=== PATIENT | female | born 1955 | race Caucasian/White ===

== ENCOUNTER → 2017-02-22 | Outpatient (CLI) | payer OTHER ==
[~2017-02-22] MED LIST: LISI-646 OR; ZOLP-158 OR
[2017-02-22 08:16] LABS: Basophils # (auto) 0.1 uL; Basophils % (auto) 0.9 % (0.0-2.0); Eosinophils # (auto) 0.3 uL; Eosinophils % (auto) 4.7 % (0.0-7.0); Hematocrit 44.2 % (36.0-46.0); Lymphocytes # (auto) 1.9 uL; Lymphocytes % (auto) 33.5 % (10.0-50.0); Mean Corpuscular Hemoglobin 34.2 pg (28.0-32.0); Mean Corpuscular Volume 100.6 fL (80.0-100.0); Mean Platelet Volume 8.9 fL (7.4-10.4); Monocytes # (auto) 0.6 uL; Neutrophils # (auto) 2.8 uL; Neutrophils % (auto) 49.9 % (37.0-80.0); Platelet Count (auto) 330 10^3/uL (140-450); Red Cell Distribution Width 13.2 % (11.6-16.0); White Blood Cell 5.6 10^3/uL (4.4-10.8)
[2017-02-22 08:44] LABS: Albumin 4.3 g/dL (3.4-5.0); BUN/Creatinine Ratio 17.4; Bilirubin, Total 0.6 mg/dL (0.2-1.0); Calcium 9.3 mg/dL (8.5-10.1); Potassium 4.7 mmol/L (3.5-5.1); Total Protein 7.9 g/dL (6.4-8.2)
== END | disposition home or self-care (01) ==
LOC: LAB 06:36
PROVIDERS: ATTEND Internal Medicine
DX: I10 Essential (primary) hypertension (principal); G47.00 Insomnia, unspecified
CPT/HCPCS: 36415; 80053; 80061; 82043; 82306; 84439; 84443; 85025; 85652

== ENCOUNTER → 2017-11-27 | Outpatient (CLI) | payer OTHER | END | disposition home or self-care (01) | LOC: LAB 13:56 | PROVIDERS: ATTEND Obstetrics & Gynecology | DX: N85.00 Endometrial hyperplasia, unspecified (principal) ==

== ENCOUNTER → 2017-12-03 | Outpatient (CLI) | payer OTHER ==
[2017-12-03 06:56] LABS: Urine Bacteria FEW /hpf (None Seen); Urine Blood Negative /uL (Negative); Urine Mucus FEW (None Seen); Urine Specific Gravity 1.025 (1.001-1.035); Urine WBC 1 /hpf (0 - 5)
[2017-12-03 07:14] LABS: Albumin 4.4 g/dL (3.4-5.0); Calcium 9.5 mg/dL (8.5-10.1); Potassium 4.6 mmol/L (3.5-5.1)
[2017-12-03 07:19] LABS: BUN/Creatinine Ratio 16.1; Basophils # (auto) 0.1 uL; Eosinophils # (auto) 0.2 uL; Eosinophils % (auto) 2.6 % (0.0-7.0); Monocytes # (auto) 0.6 uL; Neutrophils # (auto) 4.5 uL; Red Blood Cells 4.36 10^6/uL (4.0-5.20)
[2017-12-03 07:20] LABS: Bilirubin, Total 0.6 mg/dL (0.2-1.0); Total Protein 7.8 g/dL (6.4-8.2)
[2017-12-03 07:21] LABS: Basophils % (auto) 0.8 % (0.0-2.0); Hematocrit 44.7 % (36.0-46.0); Hemoglobin 15.1 g/dL (12.2-16.2); Lymphocytes # (auto) 1.9 uL; Lymphocytes % (auto) 25.6 % (10.0-50.0); Mean Corpuscular Hemoglobin 34.5 pg (28.0-32.0); Mean Corpuscular Hgb Conc. 33.7 g/dL (32.0-36.0); Mean Corpuscular Volume 102.6 fL (80.0-100.0); Monocytes % (auto) 8.6 % (0.0-12.0); Neutrophils % (auto) 62.4 % (37.0-80.0); Platelet Count (auto) 237 10^3/uL (140-450); Red Cell Distribution Width 12.6 % (11.8-14.3); White Blood Cell 7.2 10^3/uL (4.4-10.8)
== END | disposition home or self-care (01) ==
LOC: LAB 06:41
PROVIDERS: ATTEND Internal Medicine
DX: I10 Essential (primary) hypertension (principal); E78.00 Pure hypercholesterolemia, unspecified
CPT/HCPCS: 36415; 80053; 80061; 81001; 82043; 85025; 85652

== ENCOUNTER → 2018-05-13 | Outpatient (CLI) | payer OTHER ==
[2018-05-13 09:09] LABS: Albumin 4.1 g/dL (3.4-5.0); BUN/Creatinine Ratio 10.2; Bilirubin, Total 0.9 mg/dL (0.2-1.0); Calcium 9.3 mg/dL (8.5-10.1); Potassium 4.7 mmol/L (3.5-5.1); Total Protein 7.7 g/dL (6.4-8.2)
== END | disposition home or self-care (01) ==
LOC: LAB 07:03
PROVIDERS: ATTEND Internal Medicine
DX: E78.00 Pure hypercholesterolemia, unspecified (principal); N18.4 Chronic kidney disease, stage 4 (severe)
CPT/HCPCS: 36415; 80053; 80061

== ENCOUNTER → 2021-01-25 | Day surgery (SDC) | payer OTHER ==
[2021-01-20 09:54] LABS: Basophils # (auto) 0 10 ^3/uL (0-0.2); Basophils % (auto) 0.7 % (0.0-2.0); Eosinophils # (auto) 0.1 10 ^3/uL (0-0.8); Hemoglobin 15.7 g/dL (12.2-16.2); Lymphocytes # (auto) 1.8 10 ^3/uL (0.4-5.4); Mean Corpuscular Hemoglobin 34.1 pg (28.0-32.0); Mean Corpuscular Hgb Conc. 34.6 g/dL (32.0-36.0); Monocytes # (auto) 0.8 10 ^3/uL (0-1.3); Monocytes % (auto) 13.1 % (0.0-12.0); Red Blood Cells 4.61 10^6/uL (4.0-5.20)
[2021-01-20 09:58] LABS: Eosinophils % (auto) 1.4 % (0.0-7.0); Hematocrit 45.4 % (36.0-46.0); Mean Corpuscular Volume 98.6 fL (80.0-100.0); Neutrophils # (auto) 3.5 10 ^3/uL (1.6-8.6); Neutrophils % (auto) 55.8 % (37.0-80.0); Nucleated Red Blood Cells % 0.8 %; Platelet Count (auto) 332 10^3/uL (140-450); Red Cell Distribution Width 12.6 % (11.8-14.3); White Blood Cell 6.2 10^3/uL (4.4-10.8)
[2021-01-20 10:34] LABS: INR 1.02 (0.9-1.15); Partial Thromboplastin Time 27.8 sec (23.0-31.2)
[2021-01-20 10:38] LABS: Urine Bacteria NONE SEEN /hpf (None Seen); Urine Blood Negative /uL (Negative); Urine Hyaline Cast FEW /lpf (0 - 2); Urine Mucus FEW (None Seen); Urine Specific Gravity 1.026 (1.001-1.035); Urine WBC 1 /hpf (0 - 5)
[2021-01-20 10:47] LABS: Potassium 4.5 mmol/L (3.5-5.1)
[2021-01-20 11:00] LABS: Albumin 4.2 g/dL (3.4-5.0); BUN/Creatinine Ratio 10.7; Bilirubin, Total 0.6 mg/dL (0.2-1.0); Calcium 10.8 mg/dL (8.5-10.1); Total Protein 8.2 g/dL (6.4-8.2)
[~2021-01-25] VITALS: Ht 162.6 cm; Wt 74.8 kg
[~2021-01-25] MED LIST changes: +AMLO-489 PO; +BIMA0.01 EACHEYE; +HYDROmorphone HCL 2 MG/ML VL IV PRN; +HYDROmorphone HCL 2 MG/ML VL ONE; +LABETALOL HCL 5 MG/ML 4ML SYRINGE IV PRN; +LIDOCAINE 1% HCL (LOCAL ANESTH.) INJ 20ML MDV ONE; +LIDOCAINE W/ EPINEPHRINE 1% 20ML VIAL ONE; -LISI-646 OR; +LISI20TA28 OR; +METO25TA93 PO; +METOCLOPRAMIDE HCL 5MG/ml INJ 2ml VIAL ONE; +MIDAZOLAM HCL 1MG/1ML-2 ML VIAL ONE; +ONDANSETRON HCL 4 MG/2 ML VIAL IV PRN; +ONDANSETRON HCL 4 MG/2 ML VIAL ONE; -ZOLP-158 OR; +ZOLP5TAB OR; +ceFAZolin 1GM/50ML 50 ML IV ONE; +ePHEDrine SULFATE 50 MG/ML AMP ONE; +fentaNYL CITRATE 100 MCG/2 ML VL ONE; +hydrALAZINE HCL 20 MG/ML VL IV PRN
[2021-01-25 15:25] VITALS: BP 136/95
== END | disposition home or self-care (01) ==
LOC: SUR 07:27
PROVIDERS: ATTEND Surgery
DX: C50.411 Malignant neoplasm of upper-outer quadrant of right female breast (principal); K21.9 Gastro-esophageal reflux disease without esophagitis; H40.9 Unspecified glaucoma; J45.909 Unspecified asthma, uncomplicated; I10 Essential (primary) hypertension; Z98.890 Other specified postprocedural states; Z20.822 Contact with and (suspected) exposure to COVID-19; Z90.89 Acquired absence of other organs; Z91.041 Radiographic dye allergy status; Z17.0 Estrogen receptor positive status [ER+]
CPT/HCPCS: 19285; 19301; 36415; 38525; 78195; 80053; 81001; 85025; 85610; 85730; A9541; J0690; J1170; J2001; J2250; J2405; J2765; J3010; U0003

== ENCOUNTER → 2021-04-21 | Outpatient (CLI) | payer OTHER ==
[~2021-04-21] MED LIST changes: +AMLO-496 PO; -HYDROmorphone HCL 2 MG/ML VL IV PRN; -HYDROmorphone HCL 2 MG/ML VL ONE; -LABETALOL HCL 5 MG/ML 4ML SYRINGE IV PRN; -LIDOCAINE 1% HCL (LOCAL ANESTH.) INJ 20ML MDV ONE; -LIDOCAINE W/ EPINEPHRINE 1% 20ML VIAL ONE; -METOCLOPRAMIDE HCL 5MG/ml INJ 2ml VIAL ONE; -MIDAZOLAM HCL 1MG/1ML-2 ML VIAL ONE; +OMEG306C PO; -ONDANSETRON HCL 4 MG/2 ML VIAL IV PRN; -ONDANSETRON HCL 4 MG/2 ML VIAL ONE; -ceFAZolin 1GM/50ML 50 ML IV ONE; -ePHEDrine SULFATE 50 MG/ML AMP ONE; -fentaNYL CITRATE 100 MCG/2 ML VL ONE; -hydrALAZINE HCL 20 MG/ML VL IV PRN
[2021-04-21 09:37] LABS: Basophils # (auto) 0.1 10 ^3/uL (0-0.2); Eosinophils # (auto) 0.1 10 ^3/uL (0-0.8); Eosinophils % (auto) 1.6 % (0.0-7.0); Hematocrit 49.2 % (36.0-46.0); Hemoglobin 16.9 g/dL (12.2-16.2); Lymphocytes # (auto) 1.3 10 ^3/uL (0.4-5.4); Lymphocytes % (auto) 28.1 % (10.0-50.0); Mean Corpuscular Hemoglobin 33.7 pg (28.0-32.0); Mean Corpuscular Hgb Conc. 34.2 g/dL (32.0-36.0); Mean Corpuscular Volume 98.4 fL (80.0-100.0); Monocytes # (auto) 0.5 10 ^3/uL (0-1.3); Monocytes % (auto) 10.6 % (0.0-12.0); Neutrophils # (auto) 2.6 10 ^3/uL (1.6-8.6); Neutrophils % (auto) 56.7 % (37.0-80.0); Red Cell Distribution Width 12.8 % (11.8-14.3); White Blood Cell 4.6 10^3/uL (4.4-10.8)
[2021-04-21 10:14] LABS: Albumin 4.6 g/dL (3.4-5.0); Calcium 10.3 mg/dL (8.5-10.1); Potassium 4.5 mmol/L (3.5-5.1)
[2021-04-21 10:20] LABS: Bilirubin, Total 0.6 mg/dL (0.2-1.0); Total Protein 8.7 g/dL (6.4-8.2)
== END | disposition home or self-care (01) ==
LOC: LAB 09:06
PROVIDERS: ATTEND Internal Medicine
DX: Z01.812 Encounter for preprocedural laboratory examination (principal); E83.52 Hypercalcemia
CPT/HCPCS: 36415; 80053; 82088; 82384; 83615; 83970; 85025

== ENCOUNTER 2021-04-26 06:33 | Day surgery (SDC) | payer OTHER ==
[2021-04-21 09:36] LABS: Basophils # (auto) 0.1 10 ^3/uL (0-0.2); Basophils % (auto) 2.1 % (0.0-2.0); Eosinophils # (auto) 0.1 10 ^3/uL (0-0.8); Eosinophils % (auto) 1.9 % (0.0-7.0); Hematocrit 48.9 % (36.0-46.0); Hemoglobin 16.6 g/dL (12.2-16.2); Lymphocytes # (auto) 1.3 10 ^3/uL (0.4-5.4); Lymphocytes % (auto) 28.2 % (10.0-50.0); Mean Corpuscular Hemoglobin 33.5 pg (28.0-32.0); Mean Corpuscular Hgb Conc. 34.1 g/dL (32.0-36.0); Mean Corpuscular Volume 98.2 fL (80.0-100.0); Monocytes # (auto) 0.6 10 ^3/uL (0-1.3); Monocytes % (auto) 12.3 % (0.0-12.0); Neutrophils # (auto) 2.5 10 ^3/uL (1.6-8.6); Neutrophils % (auto) 55.5 % (37.0-80.0); Nucleated Red Blood Cells % 0.1 %; Red Blood Cells 4.97 10^6/uL (4.0-5.20); Red Cell Distribution Width 12.9 % (11.8-14.3); White Blood Cell 4.5 10^3/uL (4.4-10.8)
[2021-04-21 09:40] LABS: Urine Bacteria NONE SEEN /hpf (None Seen); Urine Blood Negative /uL (Negative); Urine Hyaline Cast FEW /lpf (0 - 2); Urine Mucus FEW (None Seen); Urine Specific Gravity 1.034 (1.001-1.035); Urine WBC 1 /hpf (0 - 5)
[2021-04-21 10:13] LABS: Albumin 4.6 g/dL (3.4-5.0); Calcium 10.5 mg/dL (8.5-10.1); Potassium 4.5 mmol/L (3.5-5.1)
[2021-04-21 10:16] LABS: BUN/Creatinine Ratio 16.5
[2021-04-21 10:20] LABS: Bilirubin, Total 0.6 mg/dL (0.2-1.0); Total Protein 8.7 g/dL (6.4-8.2)
[~2021-04-26] VITALS: Ht 162.6 cm; Wt 74.8 kg
[~2021-04-26 06:33] MED LIST changes: -AMLO-489 PO
[2021-04-26] MEDS ORDERED: BUPIVACAINE 0.25% INJ 50ML VIAL ONE (07:02)
[2021-04-26] MEDS ORDERED: LIDOCAINE W/ EPINEPHRINE 1% 20ML VIAL ONE (07:02)
[2021-04-26] MEDS ORDERED: ceFAZolin 1GM/50ML 100 ML IV ONE (07:23)
[2021-04-26] MEDS ORDERED: fentaNYL CITRATE 100 MCG/2 ML VL ONE (07:32)
[2021-04-26] MEDS ORDERED: MEPERIDINE HCL (50 MG/ML) 1 ML VIAL ONE (07:34)
[2021-04-26] MEDS ORDERED: MIDAZOLAM HCL 2MG/2ML 2ml VIAL (1mg/ml) ONE (07:34)
[2021-04-26] MEDS ORDERED: DexAMETHasone SOD PHOS 10MG/1ML VIAL INJ ONE (07:48)
[2021-04-26] MEDS ORDERED: PROPOFOL 10 MG/ML 20 ML IV ONE (07:48)
[2021-04-26] MEDS ORDERED: ONDANSETRON HCL 4 MG/2 ML VIAL IV PRN (08:00)
[2021-04-26] MEDS ORDERED: MORPHINE SULFATE 4 MG/ML SYR/VIAL IV PRN (08:00)
[2021-04-26] MEDS ORDERED: MIDAZOLAM HCL 2MG/2ML 2ml VIAL (1mg/ml) IV PRN (08:00)
[2021-04-26] MEDS ORDERED: hydrALAZINE HCL 20 MG/ML VL IV PRN (08:00)
[2021-04-26] MEDS ORDERED: HYDROmorphone HCL 2 MG/ML VL IV PRN (08:00)
[2021-04-26] MEDS ORDERED: ePHEDrine SULFATE 50 MG/ML AMP IV PRN (08:00)
[2021-04-26] MEDS ORDERED: LABETALOL HCL 5 MG/ML 4ML SYRINGE IV PRN (08:00)
[2021-04-26] MEDS ORDERED: ONDANSETRON HCL 4 MG/2 ML VIAL ONE (08:08)
[2021-04-26 09:15] VITALS: BP 128/74
== END 2021-04-26 09:30 | disposition home or self-care (01) ==
LOC: SUR 06:33
PROVIDERS: ATTEND Surgery
DX: D05.01 Lobular carcinoma in situ of right breast (principal); J45.909 Unspecified asthma, uncomplicated; K21.9 Gastro-esophageal reflux disease without esophagitis; I10 Essential (primary) hypertension; H40.9 Unspecified glaucoma; Z91.041 Radiographic dye allergy status; Z68.28 Body mass index [BMI] 28.0-28.9, adult; Z20.822 Contact with and (suspected) exposure to COVID-19
CPT/HCPCS: 19303; 36415; 38525; 80053; 81001; 85025; J0690; J1100; J2175; J2250; J2405; J2704; J3010; J3490; U0003

== ENCOUNTER → 2021-06-23 | Outpatient (CLI) | payer OTHER ==
[2021-06-23 07:34] LABS: Basophils # (auto) 0.1 10 ^3/uL (0-0.2); Basophils % (auto) 1.3 % (0.0-2.0); Eosinophils # (auto) 0.2 10 ^3/uL (0-0.8); Eosinophils % (auto) 3.9 % (0.0-7.0); Hematocrit 44.6 % (36.0-46.0); Hemoglobin 15.2 g/dL (12.2-16.2); Lymphocytes # (auto) 1.7 10 ^3/uL (0.4-5.4); Mean Corpuscular Hemoglobin 33.4 pg (28.0-32.0); Mean Corpuscular Hgb Conc. 34.2 g/dL (32.0-36.0); Mean Corpuscular Volume 97.7 fL (80.0-100.0); Monocytes # (auto) 0.6 10 ^3/uL (0-1.3); Monocytes % (auto) 14.2 % (0.0-12.0); Neutrophils # (auto) 1.6 10 ^3/uL (1.6-8.6); Neutrophils % (auto) 39.6 % (37.0-80.0); Nucleated Red Blood Cells % 0.1 %; Red Blood Cells 4.57 10^6/uL (4.0-5.20); Red Cell Distribution Width 12.5 % (11.8-14.3); White Blood Cell 4.1 10^3/uL (4.4-10.8)
[2021-06-23 07:53] LABS: Albumin 4.2 g/dL (3.4-5.0); BUN/Creatinine Ratio 12.3; Calcium 9.7 mg/dL (8.5-10.1); Potassium 4.1 mmol/L (3.5-5.1)
[2021-06-23 07:56] LABS: Amphetamine Screen, Urine NEGATIVE (NEGATIVE); Barbiturate Scree,Urine NEGATIVE (NEGATIVE); Benzodiazephine Screen, Urine NEGATIVE (NEGATIVE); Cannabinoid Screen, Urine NEGATIVE (NEGATIVE); Cocaine Screen, Urine NEGATIVE (NEGATIVE); Opiate Scree,Urine NEGATIVE (NEGATIVE); Phencyclidine Screen, Urine NEGATIVE (NEGATIVE)
[2021-06-23 07:57] LABS: Bilirubin, Total 0.7 mg/dL (0.2-1.0); Total Protein 7.9 g/dL (6.4-8.2)
[2021-06-23 08:07] LABS: Thyroid Stimulating Hormone 2.24 uIU/mL (0.358-3.74)
== END | disposition home or self-care (01) ==
LOC: LAB 06:50
PROVIDERS: ATTEND Internal Medicine
DX: C50.919 Malignant neoplasm of unspecified site of unspecified female breast (principal); I10 Essential (primary) hypertension; E83.52 Hypercalcemia; L40.9 Psoriasis, unspecified
CPT/HCPCS: 36415; 80053; 80061; 80307; 82384; 83615; 83970; 84439; 84443; 85025; 85652; 86300

== ENCOUNTER → 2023-12-12 | Outpatient (CLI) | payer OTHER ==
[~2023-12-12] MED LIST changes: -AMLO-496 PO; +AMLO1TAB23 PO; -LISI20TA28 OR; +LISI20TA56 OR
[2023-12-12 07:16] LABS: Basophils # (auto) 0.1 10 ^3/uL (0-0.2); Basophils % (auto) 0.8 % (0.0-2.0); Eosinophils # (auto) 0.2 10 ^3/uL (0-0.8); Eosinophils % (auto) 2.7 % (0.0-7.0); Hematocrit 41.5 % (36.0-46.0); Lymphocytes # (auto) 1.6 10 ^3/uL (0.4-5.4); Lymphocytes % (auto) 24.8 % (10.0-50.0); Mean Corpuscular Hemoglobin 33.9 pg (28.0-32.0); Mean Corpuscular Hgb Conc. 33.8 g/dL (32.0-36.0); Mean Corpuscular Volume 100.4 fL (80.0-100.0); Monocytes # (auto) 0.7 10 ^3/uL (0-1.3); Monocytes % (auto) 10.3 % (0.0-12.0); Neutrophils % (auto) 61.4 % (37.0-80.0); Red Blood Cells 4.13 10^6/uL (4.0-5.20); Red Cell Distribution Width 12.1 % (11.8-14.3); White Blood Cell 6.5 10^3/uL (4.4-10.8)
[2023-12-12 07:38] LABS: Alanine Aminotransferase 55 U/L (7-40); Albumin 5.1 g/dL (3.2-4.8); Alkaline Phosphatase 68 U/L (46-116); Anion Gap 10 (5-15); Aspartate Aminotransferase 84 U/L (13-40); BUN/Creatinine Ratio 9.3 (10.0-20.0); Blood Urea Nitrogen 9 mg/dL (9-23); Calcium 10.2 mg/dL (8.5-10.1); Carbon Dioxide 26 mmol/L (20-30); Chloride 99 mmol/L (98-107); Cholesterol 207 mg/dL (< 200); Glucose 94 mg/dL (74-106); HDL Cholesterol 52 mg/dL (40-59); LDL Cholesterol 126 mg/dL (< 100); Potassium 4.5 mmol/L (3.5-5.1); Sodium 135 mmol/L (136-145); Triglycerides 134 mg/dL (< 150)
[2023-12-12 07:39] LABS: Bilirubin, Total 0.8 mg/dL (0.2-1.0); Total Protein 7.6 g/dL (5.7-8.2); Urine Bacteria FEW /hpf (None Seen); Urine Blood Negative /uL (Negative); Urine Clarity Clear (Clear); Urine Color Yellow (Yellow); Urine Hyaline Cast FEW /lpf (0 - 2); Urine Protein, UAD 2+ (Negative); Urine Specific Gravity 1.016 (1.001-1.035); Urine Urobilinogen Normal (Negative); Urine WBC 29 /hpf (0 - 5); Urine pH 6.5 (5.0-8.0)
[2023-12-12 08:14] LABS: Erythrocyte Sedimentation Rate 22 mm/hr (0-20)
== END | disposition home or self-care (01) ==
LOC: LAB 06:02
PROVIDERS: ATTEND Internal Medicine
DX: I10 Essential (primary) hypertension (principal); E78.5 Hyperlipidemia, unspecified; C50.919 Malignant neoplasm of unspecified site of unspecified female breast
CPT/HCPCS: 36415; 80053; 80061; 81001; 82270; 84439; 84443; 85025; 85652

== ENCOUNTER → 2024-04-08 | Outpatient (CLI) | payer OTHER ==
[2024-04-08 07:53] LABS: Eosinophils # (auto) 0.1 10 ^3/uL (0-0.8); Hemoglobin 14.1 g/dL (12.2-16.2)
[2024-04-08 07:56] LABS: Basophils # (auto) 0.1 10 ^3/uL (0-0.2); Basophils % (auto) 1.2 % (0.0-2.0); Eosinophils % (auto) 3.3 % (0.0-7.0); Hematocrit 40.3 % (36.0-46.0); Lymphocytes # (auto) 1.5 10 ^3/uL (0.4-5.4); Lymphocytes % (auto) 34.7 % (10.0-50.0); Mean Corpuscular Hemoglobin 34.3 pg (28.0-32.0); Mean Corpuscular Volume 98.1 fL (80.0-100.0); Monocytes # (auto) 0.4 10 ^3/uL (0-1.3); Monocytes % (auto) 10.3 % (0.0-12.0); Neutrophils # (auto) 2.2 10 ^3/uL (1.6-8.6); Neutrophils % (auto) 50.5 % (37.0-80.0); Nucleated Red Blood Cells % 0.1 %; Red Blood Cells 4.11 10^6/uL (4.0-5.20); Red Cell Distribution Width 12.4 % (11.8-14.3); White Blood Cell 4.3 10^3/uL (4.4-10.8)
[2024-04-08 08:45] LABS: Alanine Aminotransferase 46 U/L (7-40); Alkaline Phosphatase 62 U/L (46-116); Anion Gap 10 (5-15); Aspartate Aminotransferase 61 U/L (13-40); BUN/Creatinine Ratio 8.7 (10.0-20.0); Bilirubin, Total 0.7 mg/dL (0.2-1.0); Blood Urea Nitrogen 8 mg/dL (9-23); Calcium 10.3 mg/dL (8.5-10.1); Carbon Dioxide 24 mmol/L (20-30); Chloride 98 mmol/L (98-107); Glucose 138 mg/dL (74-106); Potassium 4.4 mmol/L (3.5-5.1); Sodium 132 mmol/L (136-145); Total Protein 7.4 g/dL (5.7-8.2)
== END | disposition home or self-care (01) ==
LOC: LAB 07:35
PROVIDERS: ATTEND Internal Medicine
DX: C50.911 Malignant neoplasm of unspecified site of right female breast (principal)
CPT/HCPCS: 36415; 80053; 85025; 86300

== ENCOUNTER → 2024-06-24 | Outpatient (CLI) | payer OTHER ==
[2024-06-24 06:42] LABS: Triglycerides 135 mg/dL (< 150)
[2024-06-24 06:43] LABS: LDL Cholesterol 131 mg/dL (< 100)
[2024-06-24 06:44] LABS: Cholesterol 219 mg/dL (< 200); Eosinophils # (auto) 0.1 10 ^3/uL (0-0.8); HDL Cholesterol 55 mg/dL (40-59); Lymphocytes # (auto) 1.2 10 ^3/uL (0.4-5.4); Monocytes # (auto) 0.5 10 ^3/uL (0-1.3); Neutrophils # (auto) 1.9 10 ^3/uL (1.6-8.6); White Blood Cell 3.8 10^3/uL (4.4-10.8)
[2024-06-24 06:45] LABS: Basophils # (auto) 0 10 ^3/uL (0-0.2); Basophils % (auto) 1.3 % (0.0-2.0); Eosinophils % (auto) 3.7 % (0.0-7.0); Hematocrit 42.4 % (36.0-46.0); Hemoglobin 15.1 g/dL (12.2-16.2); Mean Corpuscular Hemoglobin 35.6 pg (28.0-32.0); Mean Corpuscular Hgb Conc. 35.5 g/dL (32.0-36.0); Mean Corpuscular Volume 100.1 fL (80.0-100.0); Monocytes % (auto) 13.8 % (0.0-12.0); Neutrophils % (auto) 49.2 % (37.0-80.0); Platelet Count (auto) 275 10^3/uL (140-450); Red Blood Cells 4.23 10^6/uL (4.0-5.20); Red Cell Distribution Width 12.6 % (11.8-14.3)
== END | disposition home or self-care (01) ==
LOC: LAB 06:10
PROVIDERS: ATTEND Internal Medicine
DX: I10 Essential (primary) hypertension (principal); E78.00 Pure hypercholesterolemia, unspecified
CPT/HCPCS: 36415; 80061; 84443; 85025

== ENCOUNTER → 2024-11-18 | Outpatient (CLI) | payer OTHER ==
[2024-11-18 07:06] LABS: Basophils # (auto) 0.1 10 ^3/uL (0-0.2); Basophils % (auto) 1.3 % (0.0-2.0); Eosinophils # (auto) 0.2 10 ^3/uL (0-0.8); Eosinophils % (auto) 4.8 % (0.0-7.0); Hematocrit 44.6 % (36.0-46.0); Hemoglobin 15.4 g/dL (12.2-16.2); Lymphocytes # (auto) 1.3 10 ^3/uL (0.4-5.4); Lymphocytes % (auto) 28.6 % (10.0-50.0); Mean Corpuscular Hemoglobin 34.4 pg (28.0-32.0); Mean Corpuscular Hgb Conc. 34.5 g/dL (32.0-36.0); Mean Corpuscular Volume 99.5 fL (80.0-100.0); Monocytes # (auto) 0.5 10 ^3/uL (0-1.3); Monocytes % (auto) 11.6 % (0.0-12.0); Neutrophils # (auto) 2.4 10 ^3/uL (1.6-8.6); Neutrophils % (auto) 53.7 % (37.0-80.0); Nucleated Red Blood Cells % 0.2 %; Platelet Count (auto) 278 10^3/uL (140-450); Red Blood Cells 4.48 10^6/uL (4.0-5.20); Red Cell Distribution Width 12.2 % (11.8-14.3); White Blood Cell 4.5 10^3/uL (4.4-10.8)
[2024-11-18 07:16] LABS: Free T4 (Free Thyroxine) 1.1 ng/dL (0.89-1.76); Thyroid Stimulating Hormone 2.81 uIU/mL (0.55-4.78)
[2024-11-18 07:17] LABS: Alanine Aminotransferase 44 U/L (7-40); Albumin 5.5 g/dL (3.2-4.8); Alkaline Phosphatase 72 U/L (46-116); Anion Gap 12 (5-15); Aspartate Aminotransferase 64 U/L (13-40); BUN/Creatinine Ratio 10.1 (10.0-20.0); Blood Urea Nitrogen 9 mg/dL (9-23); Calcium 10.9 mg/dL (8.7-10.4); Carbon Dioxide 25 mmol/L (20-31); Chloride 98 mmol/L (98-107); Glucose 102 mg/dL (74-106); Potassium 4.3 mmol/L (3.5-5.1); Sodium 135 mmol/L (136-145)
[2024-11-18 07:18] LABS: Bilirubin, Total 0.9 mg/dL (0.2-1.0); Total Protein 7.9 g/dL (5.7-8.2)
[2024-11-18 07:20] LABS: Erythrocyte Sedimentation Rate 14 mm/hr (0-20)
== END | disposition home or self-care (01) ==
LOC: LAB 06:05
PROVIDERS: ATTEND Internal Medicine
DX: C50.911 Malignant neoplasm of unspecified site of right female breast (principal); I10 Essential (primary) hypertension
CPT/HCPCS: 36415; 80053; 82270; 82607; 83615; 84439; 84443; 85025; 85652; 86300